=== PATIENT | male | born 1980 | race American Indian/Alaskan Native ===

== ENCOUNTER 2018-12-03 15:28 | Emergency (ER) | payer OTHER ==
[2018-12-03] MEDS ORDERED: ASPIRIN PO ONE (15:51)
--- NOTE | 2018-12-03 15:51 | Emergency Department Report ---
Chief Complaint: Chest Pain Stated Complaint: CHEST PAIN Time Seen by Provider: 12/03/18 15:48 - HPI History of Present Illness: This is a 38 y.o. male that presents with chest pain since yesterday. Patient reports similar symptoms 1 month ago. Vomit once this morning while preparing for work. Current smoker, 1 ppd "Feel like something is squeezing my chest". - Exam Vital Signs: Vital Signs 12/03/18 15:48 Temperature 97.9 F Pulse Rate 83 Respiratory 20 Rate Blood Pressure 155/96 O2 Sat by Pulse 97 Oximetry MSE screening note: Focused history and physical exam performed. Due to findings the following was ordered: Labs and CXR ED Disposition for MSE Condition: Stable
--- NOTE | 2018-12-03 16:24 | XRay Report ---
PROCEDURE: XR CHEST 1V AP TECHNIQUE: Chest radiograph, AP view. HISTORY: Chest Pain COMPARISONS: None currently available. FINDINGS: Cardiac silhouette is within normal limits. There is no effusion. There is no pneumothorax. There is no consolidation. There are no suspicious osseous lesions. IMPRESSION: * No acute cardiopulmonary findings. This document is electronically signed by Song Gaxiola MD., December 03 2018 04:22:48 PM ET
[2018-12-03 16:41] LABS: Basophils # (Auto) 0.1 K/mm3 (0.0-0.1); Basophils % (Auto) 0.9 % (0.0-1.8); Eosinophils # (Auto) 0.2 K/mm3 (0.0-0.4); Eosinophils % (Auto) 3.4 % (0.0-4.3); Lymphocytes # (Auto) 2.1 K/mm3 (1.2-5.4); Lymphocytes % (Auto) 28.5 % (13.4-35.0); Mean Corpuscular HGB Conc 34 % (32-34); Mean Corpuscular Hemoglobin 32 pg (28-32); Mean Corpuscular Volume 94 fl (84-94); Monocytes # (Auto) 0.4 K/mm3 (0.0-0.8); Monocytes % (Auto) 5.9 % (0.0-7.3); Platelet Count 302 K/mm3 (140-440); Red Cell Distribution Width 12.7 % (13.2-15.2)
[2018-12-03 17:12] LABS: BUN/Creatinine Ratio 10; Blood Urea Nitrogen 8 mg/dL (9-20); Calcium 9.4 mg/dL (8.4-10.2); Hemolysis Index 21
[2018-12-03 20:06] VITALS: BP 161/114
--- NOTE | 2018-12-03 20:16 | Emergency Department Report ---
ED Chest Pain HPI - General Chief Complaint: Chest Pain Stated Complaint: CHEST PAIN Time Seen by Provider: 12/03/18 15:48 Source: patient Mode of arrival: Ambulatory Limitations: No Limitations - History of Present Illness MD Complaint: chest pain Severity scale (0 -10): 8 - Related Data Previous Rx's Medication Instructions Recorded Last Taken Type hydrOXYzine HCL [Atarax] 25 mg PO Q6HR PRN #21 tablet 12/03/18 Unknown Rx Allergies Allergy/AdvReac Type Severity Reaction Status Date / Time No Known Allergies Allergy Unverified 12/03/18 15:28 ED Review of Systems ROS: Stated complaint: CHEST PAIN Other details as noted in HPI ED Past Medical Hx - Past Medical History Hx Hypertension: Yes - Surgical History Past Surgical History?: No - Social History Smoking Status: Current Every Day Smoker Substance Use Type: Alcohol - Medications Home Medications: Home Medications Medication Instructions Recorded Confirmed Last Taken Type hydrOXYzine HCL [Atarax] 25 mg PO Q6HR PRN #21 tablet 12/03/18 Unknown Rx ED Physical Exam - General Limitations: No Limitations ED Course Vital Signs 12/03/18 12/03/18 15:48 20:04 Temperature 97.9 F 98.2 F Pulse Rate 83 85 Respiratory 20 16 Rate Blood Pressure 155/96 Blood Pressure 161/114 [Left] O2 Sat by Pulse 97 98 Oximetry ED Medical Decision Making - Lab Data Result diagrams: 12/03/18 16:17 12/03/18 16:17 Critical care attestation.: If time is entered above; I have spent that time in minutes in the direct care of this critically ill patient, excluding procedure time. ED Disposition Clinical Impression: Tenderness of chest wall, Anxiety Disposition: DC-01 TO HOME OR SELFCARE Is pt being admited?: No Does the pt Need Aspirin: No Condition: Stable Instructions: Chest Pain (ED), Costochondritis (ED) Additional Instructions: Please take medication as needed. Follow up with admitted to health provider. Prescriptions: hydrOXYzine HCL [Atarax] 25 mg PO Q6HR PRN #21 tablet PRN Reason: Itching Referrals: JUAN BALTAZAR DO [Primary Care Provider] - 3-5 Days
== END 2018-12-03 20:26 | disposition home or self-care (01) ==
LOC: ED 15:28
DX: R07.89 Other chest pain (principal); F41.9 Anxiety disorder, unspecified; I10 Essential (primary) hypertension; F17.200 Nicotine dependence, unspecified, uncomplicated
CPT/HCPCS: 36415; 71045; 80048; 84484; 85025; 93005; 93010

== ENCOUNTER 2021-04-23 17:58 | Emergency (ER) | payer OTHER ==
--- NOTE | 2021-04-23 19:19 | Event Note ---
ED Screening Note ED Screening Note: states his BP has been elevated for two days states he takes lisinopril and hctz 20/.5 states he has been taking it twice a day but is only supposed to take it once a day states he has been having CP states he has body aches +n/d did receive COVID vaccine states he does have a PCP no vomiting +mild dry cough +mild SOB no leg swelling pmhx prediabetes no allergies to meds +smoker This initial assessment/diagnostic orders/clinical plan/treatment(s) is/are subject to change based on patients health status, clinical progression and re- assessment by fellow clinical providers in the ED. Further treatment and workup at subsequent clinical providers discretion. Patient/guardian urged not to elope from the ED as their condition may be serious if not clinically assessed and managed. Initial orders include: CP protocol
--- NOTE | 2021-04-23 19:46 | XRay Report ---
CHEST 2 VIEWS INDICATION: CP. COMPARISON: 12/03/2018 FINDINGS: SUPPORT DEVICES: None. HEART: Within normal limits. LUNGS/PLEURA: No acute air space or interstitial disease. No pneumothorax. ADDITIONAL FINDINGS: None. IMPRESSION: 1. No acute findings. Signer Name: Christian Reynoso MD Signed: 04/23/2021 7:42 PM Workstation Name: [id number]
[2021-04-23 19:47] LABS: Basophils # (Auto) 0.1 K/mm3 (0.0-0.1); Basophils % (Auto) 0.9 % (0.0-1.8); Eosinophils # (Auto) 0.2 K/mm3 (0.0-0.4); Eosinophils % (Auto) 2.4 % (0.0-4.3); Hematocrit 44.6 % (35.5-45.6); Hemoglobin 15.7 gm/dl (11.8-15.2); Lymphocytes # (Auto) 1.4 K/mm3 (1.2-5.4); Lymphocytes % (Auto) 16.4 % (13.4-35.0); Mean Corpuscular HGB Conc 35 % (32-34); Mean Corpuscular Volume 96 fl (84-94); Monocytes # (Auto) 0.4 K/mm3 (0.0-0.8); Monocytes % (Auto) 4.4 % (0.0-7.3); Platelet Count 294 K/mm3 (140-440); Red Blood Count 4.63 M/mm3 (3.65-5.03); Red Cell Distribution Width 12.5 % (13.2-15.2)
[2021-04-23 19:57] LABS: Albumin 4.9 g/dL (3.9-5); BUN/Creatinine Ratio 8; Blood Urea Nitrogen 6 mg/dL (9-20); Calcium 10.1 mg/dL (8.4-10.2); Hemolysis Index 47
[2021-04-23 20:09] LABS: Alanine Aminotransferase 73 units/L (7-56)
[2021-04-24] MEDS ORDERED: ONDANSETRON 4 MG/2 ML INJ IV ONE (02:36)
[2021-04-24] MEDS ORDERED: SODIUM CHLORIDE 0.9% 1000 ML 1,000 ML IV ONE (02:36)
[2021-04-24] MEDS ORDERED: hydrALAZINE 25 MG TAB PO ONE (03:20)
[2021-04-24 03:55] VITALS: BP 176/110
--- NOTE | 2021-04-24 04:00 | Emergency Department Report ---
<KAYLYN PEREZ - Last Filed: 04/24/21 04:51> ED General Adult HPI - General Chief complaint: Chest Pain Stated complaint: HIGH BP CHEST PAIN, DIZZY STOMACH PAIN Time Seen by Provider: 04/23/21 19:15 Source: patient Mode of arrival: Ambulatory Limitations: No Limitations - History of Present Illness Initial comments: Patient is a 40-year-old male with history of hypertension and GERD, likely anxiety, patient presents for chest pain intermittent for the past month. Patient is on hypertensive medications however states he has been taking them twice a day without improvement in pressure. 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 Patient denies SI or HI. Denies nausea vomiting. There is been no fever or chills. Patient does endorse drinking and smoking. Denies recreational drugs. Symptoms are exacerbated by "stress and worrying per patient" there are no other exacerbating or relieving factors. Severity scale (0 -10): 3 - Related Data Previous Rx's Medication Instructions Recorded Last Taken Type hydrOXYzine HCL [Atarax] 25 mg PO Q6HR PRN #21 tablet 12/03/18 Unknown Rx Allergies Allergy/AdvReac Type Severity Reaction Status Date / Time No Known Allergies Allergy Unverified 12/03/18 15:28 ED Review of Systems Constitutional: denies: chills, fever Eyes: denies: eye pain, eye discharge, vision change ENT: denies: ear pain, throat pain Respiratory: denies: cough, shortness of breath, wheezing Cardiovascular: chest pain Endocrine: no symptoms reported Gastrointestinal: abdominal pain, nausea. denies: diarrhea, constipation, melena Genitourinary: denies: urgency, dysuria Musculoskeletal: denies: back pain, joint swelling, arthralgia Skin: denies: rash, lesions Neurological: denies: headache, weakness, paresthesias Psychiatric: denies: anxiety, depression Hematological/Lymphatic: denies: easy bleeding, easy bruising ED Past Medical Hx - Past Medical History Previous Medical History?: Yes Hx Hypertension: Yes - Social History Smoking Status: Current Every Day Smoker Substance Use Type: Alcohol - Medications Home Medications: Home Medications Medication Instructions Recorded Confirmed Last Taken Type hydrOXYzine HCL [Atarax] 25 mg PO Q6HR PRN #21 tablet 12/03/18 Unknown Rx ED Physical Exam - General Limitations: No Limitations General appearance: alert, in no apparent distress - Head Head exam: Present: atraumatic, normocephalic - Eye Eye exam: Present: normal appearance, EOMI Pupils: Present: normal accommodation - ENT ENT exam: Present: mucous membranes moist - Neck Neck exam: Present: normal inspection, full ROM. Absent: tenderness - Respiratory Respiratory exam: Present: normal lung sounds bilaterally. Absent: respiratory distress, wheezes, stridor, chest wall tenderness - Cardiovascular Cardiovascular Exam: Present: normal rhythm, normal heart sounds. Absent: systolic murmur, diastolic murmur, rubs, gallop - GI/Abdominal GI/Abdominal exam: Present: soft, normal bowel sounds. Absent: distended, tenderness, guarding, rebound, rigid, bruit, hernia - Rectal Rectal exam: Present: deferred - Extremities Exam Extremities exam: Present: normal inspection, full ROM, normal capillary refill. Absent: tenderness, pedal edema - Back Exam Back exam: Present: normal inspection, full ROM. Absent: tenderness, CVA tenderness (R), CVA tenderness (L) - Neurological Exam Neurological exam: Present: alert, oriented X3, CN II-XII intact, normal gait - Psychiatric Psychiatric exam: Present: normal affect, normal mood - Skin Skin exam: Present: warm, dry, intact, normal color. Absent: rash ED Medical Decision Making - Lab Data Result diagrams: 04/23/21 19:24 04/23/21 19:24 CHEST 2 VIEWS INDICATION: CP. COMPARISON: 12/03/2018 FINDINGS: SUPPORT DEVICES: None. HEART: Within normal limits. LUNGS/PLEURA: No acute air space or interstitial disease. No pneumothorax. ADDITIONAL FINDINGS: None. IMPRESSION: 1. No acute findings. Signer Name: Christian Reynoso MD Signed: 04/23/2021 7:42 PM Workstation Name: [id number] Transcribed By: JW Dictated By: Christian Reynoso MD Electronically Authenticated By: Christian Reynoso MD Signed Date/Time: 04/23/211941 DD/ 41 TD/TT: - EKG Data EKG shows normal: sinus rhythm, axis, intervals, QRS complexes, ST-T waves Rate: normal - EKG Data When compared to previous EKG there are: no significant change Interpretation: normal EKG (Sinus rhythm with mild LVH, no ST elevated IA, interpreted by ED attending.) - Radiology Data Radiology results: report reviewed, image reviewed CHEST 2 VIEWS INDICATION: CP. COMPARISON: 12/03/2018 FINDINGS: SUPPORT DEVICES: None. HEART: Within normal limits. LUNGS/PLEURA: No acute air space or interstitial disease. No pneumothorax. ADDITIONAL FINDINGS: None. IMPRESSION: 1. No acute findings. Signer Name: Christian Reynoso MD Signed: 04/23/2021 7:42 PM Workstation Name: [id number] Transcribed By: ALEX Dictated By: Christian Reynoso MD Electronically Authenticated By: Christian Reynoso MD Signed Date/Time: 04/23/211941 DD/ 41 TD/TT: - Medical Decision Making Patient advises all symptoms are resolved. Patient is tolerating p.o. intake there is no nausea vomiting, there is no shortness of breath, no chest pain, no dizziness or lightheadedness. Patient is alert oriented x3 ambulatory in ED. BP is improving. Patient advised to take medications as prescribed by primary care doctor. Follow-up with primary care doctor today. For BP medication adjustment. Decrease stress load. Patient verbalized agreement and understanding with discharge plan. Patient DC'd home in stable condition at this time ED Disposition Clinical Impression: Elevated blood pressure reading, History of chest pain, Alcohol abuse Disposition: 01 HOME / SELF CARE / HOMELESS Is pt being admited?: No Does the pt Need Aspirin: No Condition: Good Instructions: Nonspecific Chest Pain, Adult Additional Instructions: Take all medications as prescribed including your blood pressure medicine, diet and exercise modification as discussed and agreed, follow-up with your primary care doctor in 2 to 3 days. Return to emergency should you think symptoms are worsening. Referrals: PRIMARY CAREMD [Primary Care Provider] - 3-5 Days Forms: Work/School Release Form(ED) Time of Disposition: 04:54 <JARED ROONEY - Last Filed: 04/26/21 11:42> ED Review of Systems ROS: Stated complaint: HIGH BP CHEST PAIN, DIZZY STOMACH PAIN Other details as noted in HPI ED Course Vital Signs 04/23/21 04/24/21 04/24/21 18:35 01:54 02:01 Temperature 98.7 F Pulse Rate 112 H Respiratory 18 Rate Blood Pressure 185/132 Blood Pressure 172/115 [Right] O2 Sat by Pulse 99 99 99 Oximetry 04/24/21 04/24/21 04/24/21 02:15 03:16 03:23 Temperature Pulse Rate 109 H Respiratory Rate Blood Pressure 185/132 187/128 175/121 Blood Pressure [Right] O2 Sat by Pulse 99 Oximetry 04/24/21 04/24/21 03:52 06:25 Temperature Pulse Rate 89 Respiratory 16 Rate Blood Pressure 176/110 Blood Pressure [Right] O2 Sat by Pulse 100 Oximetry - Reevaluation(s) Reevaluation #1: 04/24/21 05:21 Patient low risk for major adverse cardiac event as per heart score. Walking around with a steady gait. He is clinically sober. He did endorse to the nurse practitioner that he consumes alcohol. Vital signs are reviewed and appreciated, elevated blood pressure ( (please reference the [employer] clinical policy on asymptomatic hypertension)), tachycardia transaminitis likely secondary to mild alcohol dependence and nerve mild withdrawal. The patient did not endorse DVT or pulmonary embolism risk factors, he is not hypoxic or tachypneic at this time, low risk by Wells criteria for pulmonary embolism, low risk for major adverse cardiac event as per heart score, but should receive additional management, such as fluids under Librium and tachycardia should resolve prior to discharge. I have discussed this with the nurse practitioner. ED Medical Decision Making - Lab Data Result diagrams: 04/23/21 19:24 04/23/21 19:24 Critical care attestation.: If time is entered above; I have spent that time in minutes in the direct care of this critically ill patient, excluding procedure time. ED Disposition Is pt being admited?: No Does the pt Need Aspirin: No
[2021-04-24] MEDS ORDERED: chlordiazePOXIDE 25 MG CAP PO ONE (05:20)
--- NOTE | 2021-04-24 13:21 | Electrocardiograph Report ---
[facility] Test Date: 2021-04-23 Test Time: 18:58:57 Pat Name: MOHAN SAUCEDA Department: Room: Gender: M [employer]: SERGIO : 1980 Requested By: JARED ROONEY Order Number: [id number] Reading MD: Paramjit Barrientos Measurements Intervals [place] Rate: 109 P: 79 MO: 154 QRS: 0 QRSD: 80 T: 53 QT: 326 QTc: 439 Interpretive Statements Sinus tachycardia Left ventricular hypertrophy No previous ECG available for comparison Electronically Signed On 04-24-2021 13:20:55 EDT by Paramjit Barrientos
== END 2021-04-24 06:25 | disposition home or self-care (01) ==
LOC: ED 17:58
DX: R07.9 Chest pain, unspecified (principal); I10 Essential (primary) hypertension; F17.200 Nicotine dependence, unspecified, uncomplicated
CPT/HCPCS: 36415; 71046; 80053; 84484; 85025; 93005; 96361; 96374; 99284; J2405; J7030